=== PATIENT | male | born 1980 | race Caucasian/White ===

== ENCOUNTER → 2019-10-24 | Outpatient (CLI) | payer BC ==
--- NOTE | 2019-10-24 09:25 | RAD ---
EXAM: Left ankle, 3 views. HISTORY: Pain. COMPARISON: None. FINDINGS: 3 views of the left ankle are obtained. There is no fracture, dislocation or subluxation. The ankle mortise is intact. There is no osteochondral lesion. There is a suspected tiny os trigonum. IMPRESSION: No acute osseous finding. Electronically signed by: Chayito Bradford MD (10/24/2019 9:22 AM) [id number]
== END | disposition home or self-care (01) ==
LOC: PMG 08:40
PROVIDERS: ATTEND Family Medicine
DX: S99.912D Unspecified injury of left ankle, subsequent encounter (principal); X58.XXXD Exposure to other specified factors, subsequent encounter
CPT/HCPCS: 73610